=== PATIENT | male | born 1990 | race Caucasian/White ===

== ENCOUNTER 2017-09-02 22:28 | Emergency (ER) | payer SELFPAY ==
[2017-09-02] MEDS ORDERED: LORazepam 1 MG TABLET (23:00)
[2017-09-02] MEDS: LORazepam 1 MG TABLET PO (23:02)
== END 2017-09-02 23:25 | disposition home or self-care (01) ==
LOC: ER 22:28
DX: F11.20 Opioid dependence, uncomplicated (principal); G47.00 Insomnia, unspecified
CPT/HCPCS: 99283; 99284

== ENCOUNTER 2019-06-16 10:13 | Emergency (ER) | payer SELFPAY ==
[~2019-06-16] VITALS: Ht 182.9 cm; Wt 68.0 kg
[~2019-06-16 10:13] MED LIST: LORA-434 PO
[2019-06-16 10:45] LABS: BASO % 1 % (0-3); EOS # 0.1 x10^3/uL (0.0-0.7); EOS % 1 % (0-3); HEMATOCRIT 41.3 % (39.0-53.0); LYMPH # 1.2 x10^3/uL (1.0-4.8); LYMPH % 24 % (24-48); MEAN CORPUSCULAR HEMOGLOBIN 32 pg (25-35); MEAN CORPUSCULAR HGB CONC 34 g/dL (31-37); MEAN CORPUSCULAR VOLUME 95 fL (79-100); MONO # 0.4 x10^3/uL (0.0-1.1); MONO % 8 % (0-9); NEUT # 3.2 x10^3/uL (1.8-7.7); NEUT % 66 % (31-73); PLATELET COUNT 207 x10^3/uL (140-400); RED BLOOD COUNT 4.33 x10^6/uL (4.30-5.70); RED CELL DISTRIBUTION WIDTH 13.5 % (11.5-14.5); WHITE BLOOD COUNT 4.9 x10^3/uL (4.0-11.0)
[2019-06-16 10:48] LABS: CALCIUM 8.8 mg/dL (8.5-10.1); CREATININE 0.7 mg/dL (0.7-1.3); GFR 131.5
[2019-06-16 10:54] LABS: ALBUMIN 3.4 g/dL (3.4-5.0); TOTAL BILIRUBIN 0.3 mg/dL (0.2-1.0); TOTAL PROTEIN 6.7 g/dL (6.4-8.2)
[2019-06-16] MEDS ORDERED: ONDANSETRON PF 4 MG/2 ML VIAL. IV ONE (11:00)
[2019-06-16] MEDS ORDERED: IV NORMAL SALINE 1000ML BAG 1,000 ML IV SCH (11:00)
[2019-06-16] MEDS ORDERED: ONDA4TAB7 PO (11:14)
[2019-06-16] MEDS ORDERED: CHLO25CA9 PO (11:14)
--- NOTE | 2019-06-16 11:15 | PHYS DOC ---
Past Medical History Past Medical History: No Pertinent History Additional Past Medical Histor: alcohol and heroin use Past Surgical History: No Surgical History Additional Past Surgical Histo: "IM OK" Smoking Status: Current Every Day Smoker Alcohol Use: Heavy Drug Use: Opiates Social History Narrative: clean from heroin x 2 years, methadone for tx Adult General Chief Complaint Chief Complaint: WITHDRAWL HPI HPI Patient is a 29 year old male who was brought here from home due to alcohol withdrawal symptom. Patient said he is an alcoholic, previous history of heroin abuse, he is on methadone daily. Patient was prescribed Antabuse he had patient drank alcohol last night, his mom was upset about that, wanted him to quit. P jebtyson decided that he will quit drinking today. His mom made him take his methadone and his Antabuse this morning. She did not want take an antibiotic because he just drinks some alcohol last night. Patient felt like this to alcohol system, so EMS were called to take him here for evaluation. Patient started shaking and tone are up multiple times on route here. Patient was given nausea medication by EMS. Upon arrival to ER. Patient said he still feel shaky, denies suicidal ideation denies homicidal ideation. She denies any abdominal pain. She denies any chest pain. Review of Systems Review of Systems All other ROS is negative unless otherwise noted in HPI Current Medications Current Medications Current Medications Medications (Trade) Dose Ordered Sig/Jyothi Start Time Stop Time Status Last Admin Dose Admin Chlordiazepoxide (Librium) 50 mg 1X ONCE 06/16/19 11:30 06/16/19 11:31 DC 06/16/19 11:27 50 MG Lorazepam (Ativan Inj) 2 mg 1X ONCE 06/16/19 11:00 06/16/19 11:01 DC 06/16/19 10:41 2 MG Ondansetron HCl (Zofran) 4 mg 1X ONCE 06/16/19 11:00 06/16/19 11:01 DC Sodium Chloride 1,000 ml @ 1,000 mls/hr Q1H 06/16/19 11:00 06/16/19 11:59 06/16/19 10:41 1,000 MLS/HR Allergies Allergies Allergies Coded Allergies Type Severity Reaction Last Updated Verified haloperidol Allergy Intermediate 06/16/19 Yes Physical Exam Physical Exam See above Constitutional: Well developed, well nourished, no acute distress, non-toxic appearance. [] HENT: Normocephalic, atraumatic, bilateral external ears normal, oropharynx moist, no oral exudates, nose normal. [] Eyes: PERRLA, EOMI, conjunctiva normal, no discharge. [] Neck: Normal range of motion, no tenderness, supple, no stridor. [] Cardiovascular:Heart rate regular rhythm, no murmur [] Lungs & Thorax: Bilateral breath sounds clear to auscultation [] Abdomen: Bowel sounds normal, soft, no tenderness, no masses, no pulsatile masses. [] Skin: Warm, dry, no erythema, no rash. [] Back: No tenderness, no CVA tenderness. [] Extremities: No tenderness, no cyanosis, no clubbing, ROM intact, no edema. [] Neurologic: Alert and oriented X 3, normal motor function, normal sensory fu nction, no focal deficits noted. [] Psychologic: Affect normal, judgement normal, mood normal. DENIED SUICIDAL IDEATION OR HOMICIDAL IDEATION. PATIENT FELT ANXIOUS. Current Patient Data Vital Signs Vital Signs Date Time Temp Pulse Resp B/P (MAP) Pulse Ox O2 Delivery O2 Flow Rate FiO2 06/16/19 10:17 98.3 87 16 127/74 (91) 96 Room Air 98.3 Lab Values Laboratory Tests Test 06/16/19 10:30 White Blood Count 4.9 x10^3/uL (4.0-11.0) Red Blood Count 4.33 x10^6/uL (4.30-5.70) Hemoglobin 14.0 g/dL (13.0-17.5) Hematocrit 41.3 % (39.0-53.0) Mean Corpuscular Volume 95 fL (79-100) Mean Corpuscular Hemoglobin 32 pg (25-35) Mean Corpuscular Hemoglobin Concent 34 g/dL (31-37) Red Cell Distribution Width 13.5 % (11.5-14.5) Platelet Count 207 x10^3/uL (140-400) Neutrophils (%) (Auto) 66 % (31-73) Lymphocytes (%) (Auto) 24 % (24-48) Monocytes (%) (Auto) 8 % (0-9) Eosinophils (%) (Auto) 1 % (0-3) Basophils (%) (Auto) 1 % (0-3) Neutrophils # (Auto) 3.2 x10^3/uL (1.8-7.7) Lymphocytes # (Auto) 1.2 x10^3/uL (1.0-4.8) Monocytes # (Auto) 0.4 x10^3/uL (0.0-1.1) Eosinophils # (Auto) 0.1 x10^3/uL (0.0-0.7) Basophils # (Auto) 0.0 x10^3/uL (0.0-0.2) Sodium Level 143 mmol/L (136-145) Potassium Level 4.0 mmol/L (3.5-5.1) Chloride Level 106 mmol/L (98-107) Carbon Dioxide Level 31 mmol/L (21-32) Anion Gap 6 (6-14) Blood Urea Nitrogen 12 mg/dL (8-26) Creatinine 0.7 mg/dL (0.7-1.3) Estimated GFR (Cockcroft-Gault) 131.5 BUN/Creatinine Ratio 17 (6-20) Glucose Level 73 mg/dL (70-99) Calcium Level 8.8 mg/dL (8.5-10.1) Total Bilirubin 0.3 mg/dL (0.2-1.0) Aspartate Amino Transferase (AST) 25 U/L (15-37) Alanine Aminotransferase (ALT) 26 U/L (16-63) Alkaline Phosphatase 71 U/L (46-116) Total Protein 6.7 g/dL (6.4-8.2) Albumin 3.4 g/dL (3.4-5.0) Albumin/Globulin Ratio 1.0 (1.0-1.7) Lipase 88 U/L (73-393) Ethyl Alcohol Level < 10 mg/dL (0-10) Laboratory Tests 06/16/19 10:30 Laboratory Tests 06/16/19 10:30 EKG EKG [] Radiology/Procedures Radiology/Procedures [] Course & Med Decision Making Course & Med Decision Making Pertinent Labs and Imaging studies reviewed. (See chart for details) Patient denied suicidal ideation or homicidal ideation. He was given medication in the ER, FELT MUCH BETTER, WILL DISCHARGE HIM HOME WITH LIBRIUM. HE WILL NEED TO FOLLOW UP WITH HIS DOCTOR IN 2 DAYS. Dragon Disclaimer Dragon Disclaimer This electronic medical record was generated, in whole or in part, using a voice recognition dictation system. Departure Departure Impression: Primary Impression: Alcohol withdrawal Disposition: HOME, SELF-CARE Condition: IMPROVED Referrals: NO PCP (PCP) FOLLOW UP WITH YOUR DOCTOR ON MONDAY FOR REEVALUATION Patient Instructions: Alcohol Withdrawal Additional Instructions: Thank you for visiting our Emergency Department. We appreciate you trusting us with your care. If any additional problems come up don't hesitate to return to visit us. Please follow up with your primary care provider so they can plan additional care if needed and know about the problem that you had. If symptoms worsen come back to the Emergency Department. Any concerning symptoms that start such as chest pain, shortness of air, weakness or numbness on one side of the body, running high fevers or any other concerning symptoms return to the ER. Scripts Ondansetron Hcl (ZOFRAN) 4 Mg Tablet 1 TAB PO Q6HRS PRN for NAUSEA, #20 TAB Prov: JONATHAN SILVERMAN DO 06/16/19 Chlordiazepoxide Hcl (CHLORDIAZEPOXIDE HCL) 25 Mg Capsule 25 MG PO TID PRN for ANXIETY / AGITATION, #21 CAP Prov: JONATHAN SILVERMAN DO 06/16/19 JONATHAN SILVERMAN DO Jun 16, 2019 11:15
[2019-06-16 11:30] VITALS: BP 107/69
[2019-06-16] MEDS ORDERED: chlordiazePOXIDE HCL 25 MG CAPSULE PO ONE (11:30)
== END 2019-06-16 12:10 | disposition home or self-care (01) ==
LOC: ER 10:13
DX: F10.239 Alcohol dependence with withdrawal, unspecified (principal); F41.9 Anxiety disorder, unspecified; F17.200 Nicotine dependence, unspecified, uncomplicated; F15.90 Other stimulant use, unspecified, uncomplicated; Z98.890 Other specified postprocedural states; Z88.8 Allergy status to other drugs, medicaments and biological substances; Z79.899 Other long term (current) drug therapy
CPT/HCPCS: 36415; 80053; 83690; 85025; 96374; 99283; G0480; J2060; J7030